=== PATIENT | female | born 1985 | race Caucasian/White ===

== ENCOUNTER 2018-08-22 23:05 | Inpatient (IN) | payer OTHER ==
[2018-08-22] MEDS ORDERED: BETAMET ACET/BETAMET NA PH 30 MG/5 ML VIAL IM ONE (23:39)
[2018-08-23] MEDS ORDERED: DEXTROSE 5%-LACTATED RINGERS 500 ML IV ONE (02:20)
--- NOTE | 2018-08-23 02:37 | HP ---
Past Medical History - Admission Chief Complaint: SROM at 8 pm 08/22 History of Present Illness: 33 y/o with SIUP at 32.5 weeks admitted overnight with c/o breaking her water. Pt has h/o at 34 weeks and has been on 17-OH P injections throughout . Has been following with MFM. History Source: Patient - Past Medical History Cardiovascular: No: HTN Pulmonary: No: COPD Gastrointestinal: No: GERD ...: 3 ...Para: 1 ...Term: 0 ...: 1 ...Spon : 0 ...Induced : 0 ...LMP: 01/14/18 ... Weeks Gestation by Dates: 32.4 ...EDC by Dates: 10/13/18 Heme/Onc: No: Anemia Infectious Disease: No: AIDS, HIV, MRSA, STD's - Past Surgical History Past Surgical History: Yes: None Hx Myomectomy: No Hx Transabdominal Cerclage: No - Smoking History Smoking history: Never smoked - Alcohol/Substance Use Hx Alcohol Use: No - Social History Usual Living Arrangement: Yes: With Spouse ADL: Independent History of Recent Travel: No Home Medications - Allergies Allergies/Adverse Reactions: Allergies Allergy/AdvReac Type Severity Reaction Status Date / Time No Known Allergies Allergy Verified 08/22/18 23:38 - Home Medications Home Medications: Ambulatory Orders Progesterone [Progesterone in Oil] 50 mg IM WEEKLY 08/22/18 RX: Vitamins (Sjr) - 1 tab PO DAILY 08/22/18 Review of Systems - Review of Systems Constitutional: reports: No Symptoms Eyes: reports: No Symptoms HENT: reports: No Symptoms Neck: reports: No Symptoms Cardiovascular: reports: No Symptoms Respiratory: reports: No Symptoms Gastrointestinal: reports: No Symptoms Genitourinary: reports: Other (leaking amniotic fluid) Breasts: reports: No Symptoms Reported Musculoskeletal: reports: No Symptoms Integumentary: reports: No Symptoms Neurological: reports: No Symptoms Endocrine: reports: No Symptoms Hematology/Lymphatic: reports: No Symptoms Psychiatric: reports: No Symptoms Physical Exam - Maternity Vital Signs: Vital Signs Temperature 98.8 F 08/22/18 23:40 Pulse Rate 112 H 08/22/18 23:40 Respiratory Rate 18 08/22/18 23:40 Blood Pressure 126/80 08/22/18 23:40 O2 Sat by Pulse Oximetry (%) Constitutional: Yes: Well Nourished, No Distress, Calm Eyes: Yes: Conjunctiva Clear, EOM Intact HENT: Yes: Atraumatic, Normocephalic Neck: Yes: Supple, Trachea Midline Cardiovascular: Yes: Regular Rate and Rhythm Lungs: Clear to auscultation Breast(s): Yes: WNL - Abdominal Exam/OB Fundal Height: 33 Number of Fetuses: Single Presentation: Vertex Contractions: No Category: I Accelerations: Uniform Decelerations: None - Vaginal Exam/OB Vaginal Bleediing: No Presentation: Vertex/Position - Physical Exam Psychiatric: Yes: Alert, Oriented Hemorrhage Risk Assessment - Risk Factors Medium Risk Factors: Yes: None High Risk Factors: Yes: None Risk Score: 1 Risk Level: Medium Risk Problem List - Problems (1) premature rupture of membranes Code(s): O42.919 - PRETRM GT ROM, UNSP TIME BETW RUPT AND ONST LABR, UNSP TRI Assessment/Plan 33 y/o with SIUP at 32.5 weeks, PPROM Latency antibiotics s/p 1 dose betamethasone, repeat 24 hours daily CBC for now ok for regular diet close observation neonatology aware of patient
[2018-08-23] MEDS ORDERED: AMPICILLIN - 2 GM in SODIUM CHLORIDE 100 ML IVPB SCH (02:45)
[2018-08-23] MEDS ORDERED: ERYTHROMYCIN INJECTION - 250 MG in SODIUM CHLORIDE 100 ML IVPB SCH ×2 (03:00→09:00)
[2018-08-23 03:10] LABS: BASO % 0.3 % (0-2.0); EOS % 2.5 % (0-4.5); HEMATOCRIT 37.5 % (32.4-45.2); HEMOGLOBIN 13.2 GM/dL (10.7-15.3); LYMPH % 20.8 % (8-40); MCH 29.7 pg (25.7-33.7); MCHC 35.3 g/dl (32.0-36.0); MEAN CELL VOLUME 84.2 fl (80-96); MEAN PLT VOLUME 9.8 fl (7.5-11.1); NEUT % 66.4 % (42.8-82.8); PLATELET COUNT 215 K/MM3 (134-434); RBC 4.45 M/mm3 (3.60-5.2); RDW 14.4 % (11.6-15.6); WHITE BLOOD COUNT 10.7 K/mm3 (4.0-10.0)
[2018-08-23 03:11] LABS: PROTHROMBIN TIME (PATIENT) 11.8 SEC (9.7-13.0)
[2018-08-23 03:20] LABS: ANION GAP 8 MMOL/L (8-16); BLOOD UREA NITROGEN 12 mg/dL (7-18); CALCIUM 8.7 mg/dL (8.5-10.1); CHLORIDE 105 mmol/L (98-107); CO2 24 mmol/L (21-32); CREATININE 0.4 mg/dL (0.55-1.3); GLUCOSE,RANDOM 110 mg/dL (74-106); POTASSIUM 3.8 mmol/L (3.5-5.1); SODIUM 137 mmol/L (136-145)
[2018-08-23 03:31] VITALS: BMI 32.1
[2018-08-23] MEDS ORDERED: AMPICILLIN SODIUM 2 GM VIAL ONE ×4 (03:40→20:20)
[2018-08-23] MEDS: AMPICILLIN - 2 GM in SODIUM CHLORIDE 100 ML IVPB SCH ×4 (03:40→20:30)
[2018-08-23] MEDS: DEXTROSE 5%-LACTATED RINGERS 1,000 ML IV SCH (03:45)
[2018-08-23] MEDS ORDERED: AZITHROMYCIN 500 MG TABLET PO ONE (05:09)
--- NOTE | 2018-08-23 08:20 | PN ---
Ante-Partal Exam - Subjective Vital Signs: Vital Signs Temperature 98.3 F 08/23/18 08:00 Pulse Rate 88 08/23/18 08:00 Respiratory Rate 20 08/23/18 08:00 Blood Pressure 129/68 08/23/18 08:00 O2 Sat by Pulse Oximetry (%) Bleeding: No Headache: No Visual changes: No Right upper quadrant pain: No - Contractions Contractions: No - Exam during Labor Heart Rate: 125 Variability: Moderate Category: I Monitor Accelerations: Absent Monitor Decelerations: None Nitrazine Test: Positive Presentation: Vertex Remarks: sterile speculum exam revealed visually closed cervix, leaking clear amniotic fluid - Assessment/Plan Assessment/Plan: pt stable continue CBC daily, temps Q4 if any signs of labor/infection will plan for delivery, otherwise plan for IOL at 34 weeks regular diet ok today as pt stable close monitoring
[2018-08-23] MEDS ORDERED: TUBERCULIN PPD 5 TU/0.1ML SYRINGE (IN PATIENT USE ONLY) ID ONE (09:00)
[2018-08-23] MEDS: PRENATAL VITAMINS W/ FOLIC ACID TABLET (FP) PO SCH (10:00)
[2018-08-24] MEDS: DEXTROSE 5%-LACTATED RINGERS 1,000 ML IV SCH (01:40)
[2018-08-24] MEDS ORDERED: AMPICILLIN SODIUM 2 GM VIAL ONE ×3 (02:21→21:16)
[2018-08-24] MEDS ORDERED: BETAMET ACET/BETAMET NA PH 30 MG/5 ML VIAL IM ONE (02:30)
[2018-08-24] MEDS: AMPICILLIN - 2 GM in SODIUM CHLORIDE 100 ML IVPB SCH ×4 (02:30→21:29)
[2018-08-24 06:46] LABS: BASO % 0.2 % (0-2.0); EOS % 0.2 % (0-4.5); HEMATOCRIT 33.8 % (32.4-45.2); HEMOGLOBIN 11.8 GM/dL (10.7-15.3); LYMPH % 9.8 % (8-40); MCH 29.2 pg (25.7-33.7); MCHC 34.9 g/dl (32.0-36.0); MEAN CELL VOLUME 83.9 fl (80-96); MEAN PLT VOLUME 9.4 fl (7.5-11.1); MONO % 5.7 % (3.8-10.2); NEUT % 84.1 % (42.8-82.8); PLATELET COUNT 206 K/MM3 (134-434); RBC 4.03 M/mm3 (3.60-5.2); RDW 14.3 % (11.6-15.6); WHITE BLOOD COUNT 12.5 K/mm3 (4.0-10.0)
[2018-08-24] MEDS: PRENATAL VITAMINS W/ FOLIC ACID TABLET (FP) PO SCH (10:00)
[2018-08-24] MEDS: AZITHROMYCIN 250 MG TABLET PO SCH (10:00)
--- NOTE | 2018-08-24 11:47 | PN ---
Ante-Partal Exam - Subjective Subjective: Pt doing well no contractions abd pain bleeding or fever Vital Signs: Vital Signs Temperature 97.8 F 08/24/18 10:55 Pulse Rate 93 H 08/24/18 10:55 Respiratory Rate 20 08/24/18 10:55 Blood Pressure 124/71 08/24/18 10:55 O2 Sat by Pulse Oximetry (%) Bleeding: No Headache: No Visual changes: No Right upper quadrant pain: No - Contractions Contractions: No Monitor Mode: External - Exam during Labor Variability: Moderate Category: I Monitor Decelerations: None Amniotic Membrane Status: Ruptured Presentation: Vertex - Intrapartum Hemorrhage Risk Risk Score: 1 Risk Level: Medium Risk - Assessment/Plan Assessment/Plan: IUP at 32 week PPROM no contractions dong well Cat 1 BPP 02/04 DAVID 8 WBC 12 EFW 1900 Plan CBC daily IV abs SP 2 doses of steroids Will induce of fever or problems
[2018-08-24] MEDS ORDERED: SODIUM CHLORIDE 100 ML IVPB ONE ×2 (14:32→21:16)
[2018-08-25] MEDS: DEXTROSE 5%-LACTATED RINGERS 1,000 ML IV SCH ×3 (00:30→21:44)
[2018-08-25] MEDS ORDERED: AMPICILLIN SODIUM 2 GM VIAL ONE (03:32)
[2018-08-25] MEDS ORDERED: SODIUM CHLORIDE 100 ML IVPB ONE (03:32)
[2018-08-25] MEDS: AMPICILLIN - 2 GM in SODIUM CHLORIDE 100 ML IVPB SCH (03:36)
[2018-08-25] MEDS: PRENATAL VITAMINS W/ FOLIC ACID TABLET (FP) PO SCH (09:48)
[2018-08-25] MEDS: AMOXICILLIN 250 MG CAPSULE PO SCH ×2 (09:48→18:23)
[2018-08-25] MEDS: AZITHROMYCIN 250 MG TABLET PO SCH (09:49)
--- NOTE | 2018-08-25 10:21 | PN ---
Progress Note (short form) - Note Progress Note: Patient seen and evaluate, doing well. She's afebrile. She continues to experience leakage of fluid. PE : Chest : CTA, no rales Heart : S1S2, RRR, no murmur ABD : Gravid, c/w 32 weeks Perineum : + leakage of fluid A / P : PPROM S/P steroid Continue IV antibiotic Continue daily CBC
[2018-08-25 11:15] LABS: BASO % 0.3 % (0-2.0); EOS % 0.7 % (0-4.5); HEMATOCRIT 33.5 % (32.4-45.2); HEMOGLOBIN 11.6 GM/dL (10.7-15.3); LYMPH % 14.4 % (8-40); MCH 29.2 pg (25.7-33.7); MCHC 34.7 g/dl (32.0-36.0); MEAN CELL VOLUME 84.1 fl (80-96); MEAN PLT VOLUME 9.5 fl (7.5-11.1); MONO % 10.2 % (3.8-10.2); NEUT % 74.4 % (42.8-82.8); PLATELET COUNT 209 K/MM3 (134-434); RBC 3.98 M/mm3 (3.60-5.2); RDW 14.4 % (11.6-15.6); WHITE BLOOD COUNT 12.5 K/mm3 (4.0-10.0)
[2018-08-25 12:03] LABS: ANISOCYTOSIS 0; HELMET CELLS 0; HOWELL-JOLLY BODIES 0; MACROCYTOSIS 0; OVALOCYTE 0; PLATELET ESTIMATE NORMAL; ROULEAU 0; SICKELED CELLS 0; TARGET CELLS 0; TEAR DROP CELLS 0; TOXIC GRANULATION 0
--- NOTE | 2018-08-25 23:32 | PN ---
Ante-Partal Exam - Subjective Subjective: Pt with c/o contractions Vital Signs: Vital Signs Temperature 98.0 F 08/25/18 21:20 Pulse Rate 101 H 08/25/18 21:20 Respiratory Rate 18 08/25/18 21:20 Blood Pressure 135/83 08/25/18 21:20 O2 Sat by Pulse Oximetry (%) - Contractions Regularity: Irregular Intensity: Mild Monitor Mode: External - Exam during Labor Variability: Moderate Category: I Monitor Decelerations: None Amniotic Membrane Status: Leaking Amniotic Fluid: Clear Presentation: Vertex - Intrapartum Hemorrhage Risk Risk Score: 1 Risk Level: Medium Risk - Assessment/Plan Assessment/Plan: PPROM at 34 weeks occ contractions no bleeding min pain no signs of infection Cat 1 Plan will do Biophysical profile tomorrow
[2018-08-26] MEDS: AMOXICILLIN 250 MG CAPSULE PO SCH ×3 (01:20→18:42)
[2018-08-26] MEDS: DEXTROSE 5%-LACTATED RINGERS 1,000 ML IV SCH ×3 (06:17→22:00)
[2018-08-26] MEDS: AZITHROMYCIN 250 MG TABLET PO SCH (10:15)
[2018-08-26] MEDS: PRENATAL VITAMINS W/ FOLIC ACID TABLET (FP) PO SCH (10:19)
--- NOTE | 2018-08-26 17:42 | PN ---
Ante-Partal Exam - Subjective Subjective: Pt doing well pt leaking fluid Vital Signs: Vital Signs Temperature 98.8 F 08/26/18 14:00 Pulse Rate 98 H 08/26/18 14:00 Respiratory Rate 20 08/26/18 14:00 Blood Pressure 120/67 08/26/18 14:00 O2 Sat by Pulse Oximetry (%) Bleeding: No Headache: No Visual changes: No Right upper quadrant pain: No - Contractions Contractions: Yes Regularity: Irregular - Exam during Labor Category: I Monitor Decelerations: None Presentation: Vertex - Intrapartum Hemorrhage Risk Risk Score: 0 Risk Level: Low Risk - Assessment/Plan Assessment/Plan: IUp at 33 weeks PPROM Plan BPP
[2018-08-27] MEDS: AMOXICILLIN 250 MG CAPSULE PO SCH ×3 (01:41→17:25)
[2018-08-27] MEDS: DEXTROSE 5%-LACTATED RINGERS 1,000 ML IV SCH ×2 (07:45→16:00)
[2018-08-27] MEDS: AZITHROMYCIN 250 MG TABLET PO SCH (09:05)
[2018-08-27] MEDS: PRENATAL VITAMINS W/ FOLIC ACID TABLET (FP) PO SCH (09:05)
--- NOTE | 2018-08-27 10:03 | PN ---
Progress Note (SOAP) - Subjective Chief Complaint: Pt doing well - Current Medications Current Medications: Active Medications Amoxicillin (Amoxicillin -) 250 mg PO Q8H [facility] Stop: 08/30/18 02:01 Last Admin: 08/27/18 09:06 Dose: 250 mg Azithromycin (Zithromax -) 250 mg PO DAILY [facility] Stop: 08/29/18 10:01 Last Admin: 08/27/18 09:05 Dose: 250 mg Dextrose/Lactated Ringer's (D5-Lr -) 1,000 mls @ 125 mls/hr IV ASDIR [facility] Last Admin: 08/27/18 07:45 Dose: 125 mls/hr Multivit/Folic Acid/Iron ( Vitamins (Sjr) -) 1 tab PO DAILY [facility] Last Admin: 08/27/18 09:05 Dose: 1 tab - Objective Vital Signs: Vital Signs Temperature 98.6 F 08/27/18 07:40 Pulse Rate 92 H 08/27/18 07:40 Respiratory Rate 18 08/27/18 07:40 Blood Pressure 122/65 08/27/18 07:40 O2 Sat by Pulse Oximetry (%) Constitutional: Yes: Well Nourished, No Distress Gastrointestinal: Yes: WNL, Soft Labs Lab Results: CBC, BMP 08/25/18 11:00 08/23/18 02:45 Problem List - Problems (1) premature rupture of membranes Code(s): O42.919 - PRETRM GT ROM, UNSP TIME BETW RUPT AND ONST LABR, UNSP TRI Assessment/Plan IUP at 33 week Plan Consult with DARIEN
[2018-08-27 14:00] LABS: BASO % 0.6 % (0-2.0); HEMOGLOBIN 12.1 GM/dL (10.7-15.3); LYMPH % 16.1 % (8-40); MCH 29.3 pg (25.7-33.7); MCHC 34.7 g/dl (32.0-36.0); MEAN CELL VOLUME 84.4 fl (80-96); MEAN PLT VOLUME 9.6 fl (7.5-11.1); MONO % 10.6 % (3.8-10.2); NEUT % 70.7 % (42.8-82.8); PLATELET COUNT 223 K/MM3 (134-434); RBC 4.14 M/mm3 (3.60-5.2); RDW 14.3 % (11.6-15.6); WHITE BLOOD COUNT 10.3 K/mm3 (4.0-10.0)
[2018-08-27 14:39] LABS: ANISOCYTOSIS 0; MACROCYTOSIS 0; PLATELET ESTIMATE NORMAL
[2018-08-28] MEDS: AMOXICILLIN 250 MG CAPSULE PO SCH ×3 (02:09→18:39)
[2018-08-28 07:07] LABS: BASO % 0.5 % (0-2.0); EOS % 2.3 % (0-4.5); HEMATOCRIT 35.8 % (32.4-45.2); HEMOGLOBIN 12.6 GM/dL (10.7-15.3); LYMPH % 19.5 % (8-40); MCHC 35.3 g/dl (32.0-36.0); MEAN CELL VOLUME 85.1 fl (80-96); MEAN PLT VOLUME 9.5 fl (7.5-11.1); MONO % 9.4 % (3.8-10.2); NEUT % 68.3 % (42.8-82.8); PLATELET COUNT 208 K/MM3 (134-434); RBC 4.21 M/mm3 (3.60-5.2); RDW 14.4 % (11.6-15.6); WHITE BLOOD COUNT 10.1 K/mm3 (4.0-10.0)
--- NOTE | 2018-08-28 09:17 | PN ---
Ante-Partal Exam - Subjective Subjective: Pt doing well. Denies contractions/VB. NO pain. leaking clear fluid. +FM NSt reactive Vital Signs: Vital Signs Temperature 98.3 F 08/28/18 08:06 Pulse Rate 90 08/28/18 08:06 Respiratory Rate 18 08/28/18 08:06 Blood Pressure 120/62 08/28/18 08:06 O2 Sat by Pulse Oximetry (%) Bleeding: No Headache: No Visual changes: No Right upper quadrant pain: No - Contractions Contractions: No - Exam during Labor Variability: Moderate Category: I Monitor Accelerations: Present Monitor Decelerations: None Amniotic Membrane Status: Ruptured Presentation: Vertex - Assessment/Plan Assessment/Plan: continue current care plan for IOL at 34 weeks unless indication/maternal indication continue daily CBCs
[2018-08-28] MEDS: AZITHROMYCIN 250 MG TABLET PO SCH (09:36)
[2018-08-28] MEDS: PRENATAL VITAMINS W/ FOLIC ACID TABLET (FP) PO SCH (09:36)
[2018-08-28 12:04] LABS: ANISOCYTOSIS 0; MACROCYTOSIS 0; PLATELET ESTIMATE NORMAL
[2018-08-29] MEDS: DEXTROSE 5%-LACTATED RINGERS 1,000 ML IV SCH ×2 (01:15→17:00)
[2018-08-29] MEDS: AMOXICILLIN 250 MG CAPSULE PO SCH ×3 (01:55→18:31)
--- NOTE | 2018-08-29 07:05 | PN ---
Ante-Partal Exam - Subjective Subjective: Pt doing well Vital Signs: Vital Signs Temperature 98.2 F 08/29/18 04:00 Pulse Rate 94 H 08/29/18 04:00 Respiratory Rate 18 08/29/18 04:00 Blood Pressure 112/52 L 08/29/18 04:00 O2 Sat by Pulse Oximetry (%) Bleeding: No Headache: No Visual changes: No Right upper quadrant pain: No - Contractions Contractions: No - Exam during Labor Variability: Moderate Category: I Monitor Decelerations: None - Intrapartum Hemorrhage Risk Risk Score: 1 Risk Level: Medium Risk - Assessment/Plan Assessment/Plan: IUP at 33.4 week PPRoM Plani nduction at 34 week cbc
[2018-08-29 09:45] LABS: BASO % 0.6 % (0-2.0); EOS % 2.6 % (0-4.5); HEMATOCRIT 36.9 % (32.4-45.2); HEMOGLOBIN 12.7 GM/dL (10.7-15.3); LYMPH % 18.6 % (8-40); MCH 29.1 pg (25.7-33.7); MCHC 34.5 g/dl (32.0-36.0); MEAN CELL VOLUME 84.1 fl (80-96); MEAN PLT VOLUME 9.4 fl (7.5-11.1); MONO % 9.4 % (3.8-10.2); NEUT % 68.8 % (42.8-82.8); PLATELET COUNT 215 K/MM3 (134-434); RBC 4.38 M/mm3 (3.60-5.2); RDW 14.7 % (11.6-15.6); WHITE BLOOD COUNT 10.6 K/mm3 (4.0-10.0)
[2018-08-29] MEDS: AZITHROMYCIN 250 MG TABLET PO SCH (10:35)
[2018-08-29] MEDS: PRENATAL VITAMINS W/ FOLIC ACID TABLET (FP) PO SCH (10:35)
[2018-08-30] MEDS: DEXTROSE 5%-LACTATED RINGERS 1,000 ML IV SCH (00:26)
[2018-08-30] MEDS: AMOXICILLIN 250 MG CAPSULE PO SCH (02:12)
--- NOTE | 2018-08-30 07:55 | PN ---
Ante-Partal Exam - Subjective Subjective: Pt doing well Vital Signs: Vital Signs Temperature 98.0 F 08/30/18 06:00 Pulse Rate 99 H 08/30/18 06:00 Respiratory Rate 20 08/30/18 06:00 Blood Pressure 111/56 L 08/30/18 06:00 O2 Sat by Pulse Oximetry (%) Bleeding: No Headache: No Visual changes: No Right upper quadrant pain: No - Contractions Contractions: No Monitor Mode: External - Exam during Labor Heart Rate: 140 Variability: Moderate Heart Rate Location: [facility] Category: I Exam: Vaginal Amniotic Membrane Status: Ruptured Presentation: Vertex - Intrapartum Hemorrhage Risk Medium Risk Factors: None High Risk Factors: None Risk Score: 0 Risk Level: Low Risk - Assessment/Plan Assessment/Plan: IUP at 33.5 week PPROM Cat 1 stable Plan bedrest Pt and agrees with plan will induce on Friday at 34 week
[2018-08-30] MEDS: PRENATAL VITAMINS W/ FOLIC ACID TABLET (FP) PO SCH (10:21)
[2018-08-31 08:16] LABS: BASO % 0.5 % (0-2.0); EOS % 2.7 % (0-4.5); HEMATOCRIT 37.9 % (32.4-45.2); LYMPH % 19.5 % (8-40); MCH 29.1 pg (25.7-33.7); MCHC 34.4 g/dl (32.0-36.0); MEAN CELL VOLUME 84.5 fl (80-96); MEAN PLT VOLUME 9.5 fl (7.5-11.1); MONO % 10.5 % (3.8-10.2); NEUT % 66.8 % (42.8-82.8); PLATELET COUNT 232 K/MM3 (134-434); RBC 4.49 M/mm3 (3.60-5.2); RDW 14.7 % (11.6-15.6); WHITE BLOOD COUNT 10.3 K/mm3 (4.0-10.0)
[2018-08-31] MEDS: PRENATAL VITAMINS W/ FOLIC ACID TABLET (FP) PO SCH (09:10)
--- NOTE | 2018-08-31 11:14 | PN ---
Ante-Partal Exam - Subjective Subjective: Pt doing well Vital Signs: Vital Signs Temperature 98.0 F 08/31/18 10:00 Pulse Rate 103 H 08/31/18 10:00 Respiratory Rate 20 08/31/18 10:00 Blood Pressure 119/72 08/31/18 10:00 O2 Sat by Pulse Oximetry (%) Bleeding: No Headache: No Visual changes: No Right upper quadrant pain: No - Contractions Contractions: No - Exam during Labor Category: I Monitor Decelerations: None Exam: Vaginal Amniotic Membrane Status: Ruptured Presentation: Vertex - Intrapartum Hemorrhage Risk Risk Score: 1 Risk Level: Medium Risk - Assessment/Plan Assessment/Plan: IUP at 33.6 week PPROM Stable Plan Induction tomorrow
[2018-08-31 11:21] LABS: ANISOCYTOSIS 1+; MACROCYTOSIS 0; PLATELET ESTIMATE NORMAL
[2018-09-01] MEDS: PRENATAL VITAMINS W/ FOLIC ACID TABLET (FP) PO SCH (10:00)
[2018-09-01 10:18] LABS: BASO % 0.7 % (0-2.0); EOS % 1.9 % (0-4.5); HEMATOCRIT 38.8 % (32.4-45.2); HEMOGLOBIN 13.5 GM/dL (10.7-15.3); LYMPH % 19.7 % (8-40); MCH 29.8 pg (25.7-33.7); MCHC 34.8 g/dl (32.0-36.0); MEAN CELL VOLUME 85.7 fl (80-96); MEAN PLT VOLUME 9.8 fl (7.5-11.1); MONO % 10.4 % (3.8-10.2); NEUT % 67.3 % (42.8-82.8); PLATELET COUNT 237 K/MM3 (134-434); RBC 4.53 M/mm3 (3.60-5.2); RDW 14.8 % (11.6-15.6); WHITE BLOOD COUNT 10.2 K/mm3 (4.0-10.0)
[2018-09-01] MEDS ORDERED: DINOPROSTONE 10 MG VAGINAL SUPPOSITORY VG ONE (11:44)
[2018-09-01] MEDS: DEXTROSE 5%-LACTATED RINGERS 1,000 ML IV SCH ×2 (12:00→20:40)
[2018-09-01] MEDS ORDERED: AMPICILLIN SODIUM 2 GM VIAL ONE (14:00)
[2018-09-01] MEDS ORDERED: AMPICILLIN - 2 GM in SODIUM CHLORIDE 100 ML IVPB ONE (14:00)
[2018-09-01] MEDS ORDERED: AMPICILLIN SODIUM 1 GM VIAL ONE ×2 (16:48→21:01)
[2018-09-01] MEDS: AMPICILLIN - 1 GM in SODIUM CHLORIDE 100 ML IVPB SCH ×2 (18:00→22:01)
[2018-09-01] MEDS ORDERED: CITRIC ACID/SODIUM CITRATE 30 ML UNIT-DOSE CUP PO ONE (23:30)
--- NOTE | 2018-09-02 00:50 | PN ---
Ante-Partal Exam - Subjective Subjective: Pt doing well Vital Signs: Vital Signs Temperature 98.7 F 09/02/18 00:00 Pulse Rate 97 H 09/02/18 00:00 Respiratory Rate 20 09/02/18 00:00 Blood Pressure 123/80 09/02/18 00:00 O2 Sat by Pulse Oximetry (%) Bleeding: No Headache: No Visual changes: No - Contractions Contractions: No Monitor Mode: External - Exam during Labor Heart Rate: 140 Variability: Moderate Heart Rate Location: [facility] Category: I Monitor Accelerations: Present Monitor Decelerations: None Exam: Vaginal Dilatation (cm): 1-2 Effacement (%): 80 Amniotic Membrane Status: Ruptured Amniotic Fluid: Clear Presentation: Vertex Station: -2 - Intrapartum Hemorrhage Risk Risk Score: 0 Risk Level: Low Risk - Assessment/Plan Assessment/Plan: iup@34 week PPROM Plan pit aug
[2018-09-02] MEDS ORDERED: BUTORPHANOL TARTRATE 1 MG/ML VIAL IVPB ONE (00:52)
[2018-09-02] MEDS ORDERED: PROMETHAZINE HCL 25 MG/1 ML VIAL IVPUSH ONE (00:52)
[2018-09-02] MEDS ORDERED: OXYTOCIN 30 UNITS in 0.9% NS 30 UNIT/500 ML INFUS.BAG IVPB ONE (00:58)
[2018-09-02] MEDS ORDERED: OXYTOCIN 30 UNITS in 0.9% NS 30 UNIT/500 ML INFUS.BAG IVPB SCH (01:00)
--- NOTE | 2018-09-02 01:01 | LDN ---
Oxytocin Pre-Use Checklist Date and Time completed: 09/02/18 0100 Physician order on chart: Yes Current history and physical on chart: Yes Indication for induction is documented: Yes record on chart: Yes Pelvis is documented by physician to be clinically adequate: Yes Estimated weight within past week (clinical or sono): Less than 4500 grams in a non-diabetic woman Gestational age is documented: Yes Consent signed: Yes Physician with privileges: is aware of the induction, is readily available, is documented in the medical record Status of the cervix is assessed and documented: Yes Presentation is assessed and documented: Yes Assessment completed and includes: A minimum of 30 minutes of monitoring is required prior to start, At least 2 accelerations (15bpm x 15sec) in 30 minutes are present, Adequate variability, No late decelerations in past 30 minutes
--- NOTE | 2018-09-02 01:03 | PN ---
Ante-Partal Exam - Subjective Subjective: Pt doing well Pt & agree with induction Vital Signs: Vital Signs Temperature 98.7 F 09/02/18 00:00 Pulse Rate 97 H 09/02/18 00:00 Respiratory Rate 20 09/02/18 00:00 Blood Pressure 123/80 09/02/18 00:00 O2 Sat by Pulse Oximetry (%) - Exam during Labor Heart Rate Location: [facility] Category: I Monitor Accelerations: Present Monitor Decelerations: None Exam: Vaginal Dilatation (cm): 1-2 Effacement (%): 80 Amniotic Membrane Status: Ruptured - Intrapartum Hemorrhage Risk Medium Risk Factors: None Risk Score: 0 Risk Level: Low Risk - Assessment/Plan Assessment/Plan: IUP @ 34 week PPROM Cat 1 induction advised by DARIEN Plan cervidil
[2018-09-02] MEDS ORDERED: AMPICILLIN SODIUM 1 GM VIAL ONE ×3 (01:20→09:59)
[2018-09-02] MEDS: AMPICILLIN - 1 GM in SODIUM CHLORIDE 100 ML IVPB SCH ×3 (01:57→10:00)
[2018-09-02] MEDS ORDERED: PROMETHAZINE HCL 25 MG/1 ML VIAL ONE (03:57)
[2018-09-02] MEDS ORDERED: BUTORPHANOL TARTRATE 1 MG/ML VIAL ONE ×2 (03:57)
[2018-09-02] MEDS ORDERED: FENTANYL/BUPIVACAINE/NS/PF - PCEA - 50 ML DISP.SYRIN EP ONE ×2 (06:08→10:35)
[2018-09-02] MEDS ORDERED: NALOXONE HCL 0.4 MG/ML VIAL IVPUSH PRN (06:18)
--- NOTE | 2018-09-02 06:18 | PN ---
Ante-Partal Exam - Subjective Subjective: Pt on 7 mu pitocon desires epidural Vital Signs: Vital Signs Temperature 98.1 F 09/02/18 05:00 Pulse Rate 94 H 09/02/18 05:00 Respiratory Rate 20 09/02/18 05:00 Blood Pressure 120/82 09/02/18 05:00 O2 Sat by Pulse Oximetry (%) Bleeding: No Headache: No Visual changes: No Right upper quadrant pain: No - Contractions Contractions: Yes Monitor Mode: External - Exam during Labor Variability: Moderate Heart Rate Location: [facility] Category: I Monitor Accelerations: Present Monitor Decelerations: None Exam: Vaginal Dilatation (cm): 1-2 Effacement (%): 80 Amniotic Membrane Status: Ruptured Presentation: Vertex Station: 0 - Intrapartum Hemorrhage Risk Risk Score: 0 Risk Level: Low Risk - Assessment/Plan Assessment/Plan: PPROm at 34.1 day will get epidural Cat 1 Plan Neonatology aware continue abs continue pitocin
[2018-09-02] MEDS ORDERED: BUPIVACAINE HCL/PF 0.25% (2.5MG/ML) 10 ML VIAL ONE (06:26)
[2018-09-02] MEDS ORDERED: LIDO 2%/EPI 1:200000 PRESRVFRE (20 ML SDVIAL) ONE (06:26)
[2018-09-02] MEDS ORDERED: FENTANYL/BUPIVACAINE/NS/PF - PCEA - 50 ML DISP.SYRIN EP SCH (06:30)
[2018-09-02] MEDS ORDERED: ELECTROLYTE-148 SOLN 1,000 ML IV SCH (07:15)
[2018-09-02] MEDS: PRENATAL VITAMINS W/ FOLIC ACID TABLET (FP) PO SCH (10:53)
[2018-09-02] MEDS ORDERED: OXYTOCIN 20 UNITS in 0.9% NS 20 UNIT/1,000 ML INFUS.BAG IV ONE (11:02)
[2018-09-02] MEDS ORDERED: BENZOCAINE 28 GM HEMORRHOIDAL OINTMENT TP PRN (11:45)
[2018-09-02] MEDS ORDERED: BENZOCAINE 20% 57 GM BOTTLE TP PRN (11:45)
[2018-09-02] MEDS ORDERED: BISACODYL 10 MG SUPP.RECT RC PRN (11:45)
[2018-09-02] MEDS ORDERED: OXYTOCIN 20 UNITS in 0.9% NS 20 UNIT/1,000 ML INFUS.BAG IV SCH (11:45)
[2018-09-02] MEDS ORDERED: METHYLERGONOVINE MALEATE 0.2 MG/1 ML AMP IM PRN (11:45)
[2018-09-02] MEDS ORDERED: WITCH HAZEL 50% (TUCKS) 40 PAD/JAR PAD TP PRN (11:45)
--- NOTE | 2018-09-02 11:46 | PN ---
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
[2018-09-02] MEDS ORDERED: SODIUM CHLORIDE 250 ML IV STA (12:36)
[2018-09-02 13:21] LABS: BASO % 0.6 % (0-2.0); EOS % 0.1 % (0-4.5); HEMATOCRIT 36.8 % (32.4-45.2); HEMOGLOBIN 12.6 GM/dL (10.7-15.3); LYMPH % 5.1 % (8-40); MCH 29.3 pg (25.7-33.7); MCHC 34.2 g/dl (32.0-36.0); MEAN CELL VOLUME 85.8 fl (80-96); MEAN PLT VOLUME 9.9 fl (7.5-11.1); MONO % 4.7 % (3.8-10.2); NEUT % 89.5 % (42.8-82.8); PLATELET COUNT 217 K/MM3 (134-434); RBC 4.29 M/mm3 (3.60-5.2); RDW 14.9 % (11.6-15.6); WHITE BLOOD COUNT 17.1 K/mm3 (4.0-10.0)
--- NOTE | 2018-09-02 14:49 | EKG ---
Test Reason : Blood Pressure : / mmHG Vent. Rate : 120 BPM Atrial Rate : 120 BPM P-R Int : 160 ms QRS Dur : 076 ms QT Int : 322 ms P-R-T Axes : 043 074 018 degrees QTc Int : 455 ms SINUS TACHYCARDIA OTHERWISE NORMAL ECG NO PREVIOUS ECGS AVAILABLE Confirmed by OBI TURNER, KANE ([id number]) on 09/02/2018 2:49:23 PM Referred By: DMITRY GENTILE Confirmed By:KANE CROCKER MD
[2018-09-02] MEDS: IBUPROFEN 600 MG TABLET (FP) PO PRN ×2 (15:28→19:29)
[2018-09-02] MEDS: ACETAMINOPHEN 325 MG TABLET (FP) PO PRN ×2 (15:29→19:29)
[2018-09-03] MEDS: IBUPROFEN 600 MG TABLET (FP) PO PRN ×2 (04:26→16:14)
[2018-09-03] MEDS: ACETAMINOPHEN 325 MG TABLET (FP) PO PRN ×2 (04:26→16:13)
--- NOTE | 2018-09-03 06:34 | PN ---
Post Progress Note - Subjective Subjective: pt sleeping upon my arrival no acute events overnight per nursing staff. tolerating diet, ambulating and voidibg. kt Post Day: 1 Type of Delivery: Vital Signs: Vital Signs Temperature 98.6 F 09/03/18 06:00 Pulse Rate 83 09/03/18 06:00 Respiratory Rate 18 09/03/18 06:00 Blood Pressure 120/66 09/03/18 06:00 O2 Sat by Pulse Oximetry (%) 100 09/02/18 13:15 Uterus: Yes: Fundus Firm Abdomen/GI: Yes: Abdomen soft, Tolerating PO Lochia: Yes: Rubra Lochia, amount: Small Activity: Ambulating - Labs Labs: CBC WBC 17.1 K/mm3 (4.0-10.0) H 09/02/18 13:05 RBC 4.29 M/mm3 (3.60-5.2) 09/02/18 13:05 Hgb 12.6 GM/dL (10.7-15.3) 09/02/18 13:05 Hct 36.8 % (32.4-45.2) 09/02/18 13:05 MCV 85.8 fl (80-96) 09/02/18 13:05 MCH 29.3 pg (25.7-33.7) 09/02/18 13:05 MCHC 34.2 g/dl (32.0-36.0) 09/02/18 13:05 RDW 14.9 % (11.6-15.6) 09/02/18 13:05 Plt Count 217 K/MM3 (134-434) 09/02/18 13:05 MPV 9.9 fl (7.5-11.1) 09/02/18 13:05 Absolute Neuts (auto) 15.3 K/mm3 (1.5-8.0) H 09/02/18 13:05 Neutrophils % 89.5 % (42.8-82.8) H D 09/02/18 13:05 Neutrophils % (Manual) 67.0 % (42.8-82.8) 08/31/18 07:25 Band Neutrophils % 1.0 % 08/31/18 07:25 Lymphocytes % 5.1 % (8-40) L D 09/02/18 13:05 Lymphocytes % (Manual) 14.0 % (8-40) D 08/31/18 07:25 Monocytes % 4.7 % (3.8-10.2) 09/02/18 13:05 Monocytes % (Manual) 4 % (3.8-10.2) 08/31/18 07:25 Eosinophils % 0.1 % (0-4.5) D 09/02/18 13:05 Eosinophils % (Manual) 4.0 % (0-4.5) D 08/31/18 07:25 Basophils % 0.6 % (0-2.0) 09/02/18 13:05 Basophils % (Manual) 1.0 % (0-2.0) D 08/31/18 07:25 Myelocytes % (Man) 1 % (0-2) 08/31/18 07:25 Promyelocytes % (Man) 0 % (0-2) 08/31/18 07:25 Blast Cells % (Manual) 0 % (0-0) 08/31/18 07:25 Nucleated RBC % 0 % (0-0) 09/02/18 13:05 Metamyelocytes 3 % (0-2) H D 08/31/18 07:25 Hypochromia 0 08/31/18 07:25 Toxic Granulation 0 08/25/18 11:00 Dohle Bodies 0 08/25/18 11:00 Platelet Estimate Normal 08/31/18 07:25 Platelet Comment Present 08/25/18 11:00 Polychromasia 1+ 08/31/18 07:25 Poikilocytosis 0 08/31/18 07:25 Basophilic Stippling 0 08/25/18 11:00 Anisocytosis 1+ 08/31/18 07:25 Microcytosis 1+ 08/31/18 07:25 Macrocytosis 0 08/31/18 07:25 Spherocytes 0 08/25/18 11:00 Sickle Cells 0 08/25/18 11:00 Target Cells 0 08/25/18 11:00 Tear Drop Cells 0 08/25/18 11:00 Ovalocytes 0 08/25/18 11:00 Stomatocytes 0 08/25/18 11:00 Helmet Cells 0 08/25/18 11:00 Escobar-Melia Bodies 0 08/25/18 11:00 [place] Rings 0 08/25/18 11:00 [place] Cells 0 08/25/18 11:00 Acanthocytes (Spur) 0 08/25/18 11:00 Rouleaux 0 08/25/18 11:00 Fragmented RBCs 0 08/25/18 11:00 Schistocytes 0 08/25/18 11:00 Problem List - Problems (1) premature rupture of membranes Code(s): O42.919 - PRETRM GT ROM, UNSP TIME BETW RUPT AND ONST LABR, UNSP TRI (2) Vaginal delivery Code(s): O80 - ENCOUNTER FOR FULL-TERM UNCOMPLICATED DELIVERY Assessment/Plan regular diet ambulation await cbc routine care
[2018-09-03 07:28] LABS: BASO % 0.6 % (0-2.0); EOS % 1.7 % (0-4.5); HEMATOCRIT 35.1 % (32.4-45.2); HEMOGLOBIN 12.1 GM/dL (10.7-15.3); LYMPH % 9.7 % (8-40); MCH 29.3 pg (25.7-33.7); MCHC 34.5 g/dl (32.0-36.0); MEAN CELL VOLUME 84.8 fl (80-96); MEAN PLT VOLUME 9.6 fl (7.5-11.1); MONO % 8.9 % (3.8-10.2); NEUT % 79.1 % (42.8-82.8); PLATELET COUNT 205 K/MM3 (134-434); RBC 4.14 M/mm3 (3.60-5.2); RDW 15.1 % (11.6-15.6); WHITE BLOOD COUNT 14.5 K/mm3 (4.0-10.0)
[2018-09-03] MEDS: PRENATAL VITAMINS W/ FOLIC ACID TABLET (FP) PO SCH (09:56)
[2018-09-03] MEDS ORDERED: SENNOSIDES/DOCUSATE COMBO (SENNA PLUS) TABLET (UD) PO PRN (22:00)
[2018-09-04] MEDS: ACETAMINOPHEN 325 MG TABLET (FP) PO PRN ×2 (00:51→10:19)
[2018-09-04] MEDS: IBUPROFEN 600 MG TABLET (FP) PO PRN ×2 (00:52→10:19)
--- NOTE | 2018-09-04 01:54 | DS ---
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 Vital Signs: Vital Signs Temperature 98.6 F 09/03/18 22:00 Pulse Rate 80 09/03/18 22:00 Respiratory Rate 18 09/03/18 22:00 Blood Pressure 124/75 09/03/18 22:00 O2 Sat by Pulse Oximetry (%) 100 09/03/18 10:00 Constitutional: Yes: Well Nourished, No Distress, Calm Eyes: Yes: Conjunctiva Clear, EOM Intact HENT: Yes: Atraumatic, Normocephalic Neck: Yes: Supple, Trachea Midline Cardiovascular: Yes: Regular Rate and Rhythm Respiratory: Yes: Regular, CTA Bilaterally Gastrointestinal: Yes: Normal Bowel Sounds, Soft ....Post : Yes: Uterus firm, Uterus non-tender Neurological: Yes: Alert, Oriented Psychiatric: Yes: Alert, Oriented Labs: CBC, BMP 09/03/18 06:30 08/23/18 02:45 Delivery - Delivery Vaginal Delivery: No Problems Type of Anesthesia: Epidural Episiotomy/Laceration: Perineal Extension/lac, 1st degree EBL (cc): 250 Delivery, Single - Stages of Labor Date 1st Stage Initiatied: 09/02/18 Time 1st Stage Initiated: 01:00 Date 2nd Stage Initiated: 09/02/18 Time 2nd Stage Initiated: 11:00 Date of Delivery: 09/02/18 Time of Delivery: 11:25 Time Placenta Delivered: 11:28 Placenta: Yes: Spontaneous - Condition of Heel Coverer/Billing Supervisor Present: Yes Name: Elisa Rosen Gender: Female Weight: 5 lb 4 oz Position: Right, OA Total Hours ROM (Hrs/Mins): 256/28 - 1 Minute Total Score: 9 5 Minutes Total Score: 9 - Feeding Plan Initial Plan: Elected not to breastfeed exclusively throughout hospitalization Discharge Summary Reason For Visit: ADMIT/PRE MATURE RUPTURE OF MEMBRANE Current Active Problems premature rupture of membranes (Acute) Vaginal delivery (Acute) Procedures: Principal: normal vaginal delivery Hospital Course: Pt admitted at on 08/23/18 at 32.5 weeks gestation with PPROM. Pt was given latency antibiotics and then at 34 weeks the patient was induced and she subsequently had a normal at 34.1 weeks gestation. She had an uncomplicated post recovery and was discharged home on post day 2. Condition: Good - Instructions Diet, Activity, Other Instructions: Physical activity Resume your normal everyday activity as tolerated no heavy lifting or strenuous exercise until seen by your doctor. No sexually activity for 6 weeks post . Wound care You may shower daily, no soaking in tubs/baths/pools for 6 weeks. Diet There are no dietary restrictions. Eat healthy, high-fiber foods. Drink 6 to 8 glasses of liquid each day. This will assist in keeping your bowels regular. Pain management You may take Tylenol or Ibuprofen (for example, Motrin, Advil etc.) as needed for pain. Call MD for any of the following: Severe pain not relieved by medication Fever of 101 or higher Excessive bleeding or drainage on dressing Inability to urinate Disposition: HOME - Home Medications Comprehensive Discharge Medication List: Ambulatory Orders Vitamins (Sjr) - 1 tab PO DAILY 08/22/18 Ibuprofen [Motrin -] 600 mg PO QID PRN #28 tablet 09/04/18
[2018-09-04] MEDS: PRENATAL VITAMINS W/ FOLIC ACID TABLET (FP) PO SCH (10:19)
[2018-09-04 10:39] VITALS: BP 129/81; PULSE 87; TEMP 98
== END 2018-09-04 12:00 | disposition home or self-care (01) | DRG 560 ==
LOC: JDEL 23:05 → JLDR 08-23 02:20 → J3W 08-24 10:55 → JLDR 08-25 18:15 → J3W 08-25 21:20 → JLDR 09-01 07:20 → J3W 09-02 15:05
PROVIDERS: ADMIT Obstetrics & Gynecology; ATTEND Obstetrics & Gynecology
PROC: 10E0XZZ Delivery of Products of Conception, External Approach (ICD-10-PCS; principal; 2018-09-02)
PROC: 0HQ9XZZ Repair Perineum Skin, External Approach (ICD-10-PCS; 2018-09-02)
DX: O42.113 Preterm premature rupture of membranes, onset of labor more than 24 hours following rupture, third trimester (principal); O60.14X0 Preterm labor third trimester with preterm delivery third trimester, not applicable or unspecified; O70.0 First degree perineal laceration during delivery; Z3A.32 32 weeks gestation of pregnancy; Z37.0 Single live birth
CPT/HCPCS: 36415; 59409; 76801-TC; 80048; 85025; 85610; 85730; 86593; 86850; 86900; 86901; 87389; 93005; 93010; 96372

== ENCOUNTER 2019-03-25 15:57 | Emergency (ER) | payer OTHER ==
[2019-03-25 16:08] VITALS: BMI 30.9
--- NOTE | 2019-03-25 16:29 | PDOC ---
Rapid Medical Evaluation Chief Complaint: Bleeding from Anus Time Seen by Provider: 03/25/19 16:26 Medical Evaluation: Allergies Allergy/AdvReac Type Severity Reaction Status Date / Time No Known Allergies Allergy Verified 03/25/19 16:08 Vital Signs Temp Pulse Resp BP Pulse Ox 98.6 F 83 18 114/68 97 03/25/19 16:03 03/25/19 16:03 03/25/19 16:03 03/25/19 16:03 03/25/19 16:03 03/25/19 16:26 33 year old female c/o rectal bleeding for the last 3 days. denies abdominal pain, vaginal bleeding, urinary symptoms. patient send by PCP for evalaution PE: patient alert ox3 A: abdominal pain labs, guaiac patient to the ER for further management of care. Discharge Disposition - Diagnosis Rectal bleeding - Discharge Dispostion Last Admission D/C Date: 09/04/18 - Referrals Referrals: Kateryna Rosario MD [Primary Care Provider] - - Patient Instructions - Post Discharge Activity
--- NOTE | 2019-03-25 17:12 | PDOC ---
History of Present Illness <Tenisha Orozco - Last Filed: 03/25/19 17:50> - General History Source: Patient Exam Limitations: No Limitations - History of Present Illness Travel History: No Initial Comments: 03/25/19 17:07 HISTORY OF PRESENT ILLNESS: This is a 33-year-old woman is 4 para 2 is currently 8 weeks with twins presents emergency department for evaluation of rectal bleed for 4 days. Patient brought a picture of her toilet which showed slight red tinged toilet water. Patient denies pain. When questioned patient states she is positive that her rectum that is bleeding and not her vagina. Patient is taking vitamins. No recent travel or sick contacts. PAST MEDICAL HISTORY: Denies past medical history SURGICAL HISTORY: Denies ALLERGIES: No known drug allergies REVIEW OF SYSTEMS General/Constitutional: Denies fever or chills. Denies weakness, weight change. HEENT: Denies change in vision. Denies ear pain or discharge. Denies sore throat. Cardiovascular: Denies chest pain or shortness of breath. Respiratory: Denies cough, wheezing, or hemoptysis. Gastrointestinal: see HPI Genitourinary: Denies dysuria, frequency, or change in urination. Musculoskeletal: Denies joint or muscle swelling or pain. Denies neck or back pain. Skin and breasts: Denies rash or easy bruising. Neurologic: Denies headache, vertigo, loss of consciousness, or loss of sensation. Psychiatric: Denies depression or anxiety. Endocrine: Denies increased thirst. Denies abnormal weight change. Hematologic/Lymphatic: Denies anemia, easy bleeding, or history of blood clots. Allergic/Immunologic: Denies hives or skin allergy. Denies latex allergy. PHYSICAL EXAM General Appearance: Well-appearing, appropriately dressed. No apparent distress , no intoxication. HEENT: EOMI, PERRLA, normal ENT inspection, normal voice, TMs normal, pharynx normal. No conjunctival pallor. No photophobia, scleral icterus. Respiratory/Chest: Lungs CTAB. No shortness of breath, chest tenderness, respiratory distress, accessory muscle use. No crackles, rales, rhonchi, stridor , wheezing, dullness Cardiovascular: RRR. S1, S2. No JVD, murmur, bradycardia, tachycardia. Vascular Pulses: Dorsalis-Pedis (R): 2+, Dorsalis-Pedis (L): 2+ Gastrointestinal/Abdominal: Normal bowel sounds. Abdomen soft, non-distended. No tenderness or rebound tenderness. No organomegaly, pulsatile mass, guarding, hernia, hepatomegaly, splenomegaly. Rectal: No lesions or hemorrhoids present to the anus and perianal region. Rectal tone is within normal limits. No palpable abnormalities noted to rectal vault. Nonbloody brown stool noted. Guiac collected. Integumentary: Appropriate color, dry, warm. No cyanosis, erythema, jaundice or rash <Dejon Matias - Last Filed: 03/26/19 16:49> - General Chief Complaint: Bleeding from Anus Stated Complaint: RECTAL BLEEDING Time Seen by Provider: 03/25/19 16:26 Past History <Tenisha Orozco - Last Filed: 03/25/19 17:50> - Past Medical History Asthma: No Cancer: No Cardiac Disorders: No COPD: No Diabetes: No HTN: No Seizures: No Thyroid Disease: No - Reproductive History (#): 2 Para: 1 - Immunization History Immunization Up to Date: Yes - Psycho Social/Smoking Cessation Hx Smoking History: Unknown if ever smoked Have you smoked in the past 12 months: No Hx Alcohol Use: No Drug/Substance Use Hx: No Substance Use Type: Marijuana Hx Substance Use Treatment: No <Dejon Matias - Last Filed: 03/26/19 16:49> - Past Medical History Allergies/Adverse Reactions: Allergies Allergy/AdvReac Type Severity Reaction Status Date / Time No Known Allergies Allergy Verified 03/25/19 16:08 Home Medications: Ambulatory Orders Vitamins (Sjr) - 1 tab PO DAILY 08/22/18 Ibuprofen [Motrin -] 600 mg PO QID PRN #28 tablet 09/04/18 *Physical Exam - Vital Signs Last Vital Signs Temp Pulse Resp BP Pulse Ox 98.6 F 83 18 114/68 97 03/25/19 16:03 03/25/19 16:03 03/25/19 16:03 03/25/19 16:03 03/25/19 16:03 <Tenisha Orozco - Last Filed: 03/25/19 17:50> - Vital Signs Last Vital Signs Temp Pulse Resp BP Pulse Ox 98.6 F 83 18 114/68 97 03/25/19 16:03 03/25/19 16:03 03/25/19 16:03 03/25/19 16:03 03/25/19 16:03 <Dejon Matias - Last Filed: 03/26/19 16:49> ED Treatment Course - LABORATORY CBC & Chemistry Diagram: 03/25/19 17:22 03/25/19 17:22 - ADDITIONAL ORDERS Additional order review: Laboratory Results 03/25/19 17:08 Stool Occult Blood Negative 03/25/19 17:22 RBC 4.63 MCV 84.3 MCHC 33.6 RDW 14.0 MPV 9.4 Neutrophils % 57.1 D Lymphocytes % 27.5 D Monocytes % 10.4 H Eosinophils % 4.1 D Basophils % 0.9 <Tenisha Orozco - Last Filed: 03/25/19 17:50> - LABORATORY CBC & Chemistry Diagram: 03/25/19 17:22 03/25/19 17:22 <Dejon Matias - Last Filed: 03/26/19 16:49> Medical Decision Making - Medical Decision Making 03/25/19 17:50 The patient was seen and evaluated in conjunction with midlevel provider under my direct supervision, ancillary studies were reviewed. I agree with the plan as outlined [facility]ION[facility] [employer] [employer]. HPI, workup/dispo as outlined. VS reviewed, wnl. anticipate discharge, pcp followup, return precautions <Tenisha Orozco - Last Filed: 03/25/19 17:50> - Medical Decision Making 03/25/19 17:12 A/P: 33-year-old 4 para 2 sent by her primary doctor for evaluation of rectal bleeding Rectal exam are within normal limits Rectal exam reveals brown stool No rectal abnormalities noted Laboratory testing included a beta hCG Transvaginal ultrasound Urine testing Reassess 03/25/19 19:43 Ultrasound as read by Dr. Whittington: Intrauterine twin gestation. Twin A sonographic gestational age is 7 weeks 1 day with heart rate of 140 bpm Twin B sonographic gestational age is 7 weeks 5 days with heart rate 144 bpm. Normal ovaries Patient is Rh+. Beta hCG 89,584. No anemia noted Guaiac-negative. I will discharge the patient home to follow-up to primary doctor as needed. I discussed the physical exam findings, ancillary test results and final diagnoses with the patient. I answered all of the patient's questions. The patient was satisfied with the care received and felt comfortable with the discharge plan and treatment plan. The patient will call their primary care physician within 24 hours to arrange follow-up and will return to the Emergency Department with any new, persistent or worsening symptoms. Portions of this note have been documented using voice recognition software. As a result, errors may occur in the escalation engineer process. Effort has been made to correct all grammatical and escalation engineer error, but some may have been missed. 03/26/19 16:49 <Dejon Matias - Last Filed: 03/26/19 16:49> Discharge <Tenisha Orozco - Last Filed: 03/25/19 17:50> - Discharge Information Problems reviewed: Yes - Admission No <Dejon Matias - Last Filed: 03/26/19 16:49> - Discharge Information Clinical Impression/Diagnosis: Rectal bleeding Condition: Fair Disposition: HOME - Follow up/Referral Referrals: Kateryna Rosario MD [Primary Care Provider] - - Patient Discharge Instructions Additional Instructions: Take your vitamins. Keep well-hydrated. Make an appointment with your [facility] for reevaluation. Return to the emergency department immediately for severe pain, vaginal bleeding that requires more than 2 pads per hour or for any other symptoms. Thank you very much for choosing us to provide your emergent health care needs. - Post Discharge Activity
[2019-03-25 17:30] LABS: BASO % 0.9 % (0-2.0); EOS % 4.1 % (0-4.5); HEMATOCRIT 39.1 % (32.4-45.2); HEMOGLOBIN 13.1 GM/dL (10.7-15.3); LYMPH % 27.5 % (8-40); MCH 28.3 pg (25.7-33.7); MCHC 33.6 g/dl (32.0-36.0); MEAN CELL VOLUME 84.3 fl (80-96); MEAN PLT VOLUME 9.4 fl (7.5-11.1); MONO % 10.4 % (3.8-10.2); NEUT % 57.1 % (42.8-82.8); PLATELET COUNT 262 K/MM3 (134-434); RBC 4.63 M/mm3 (3.60-5.2); WHITE BLOOD COUNT 8.8 K/mm3 (4.0-10.0)
[2019-03-25 17:52] LABS: INR 0.91 (0.83-1.09); PROTHROMBIN TIME (PATIENT) 10.7 SEC (9.7-13.0)
[2019-03-25 17:59] LABS: ALBUMIN 3.4 g/dl (3.4-5.0); BILIRUBIN,TOTAL 0.3 mg/dL (0.2-1); BLOOD UREA NITROGEN 9.4 mg/dL (7-18); CALCIUM 9.3 mg/dL (8.5-10.1); CREATININE 0.7 mg/dL (0.55-1.3); POTASSIUM 4.1 mmol/L (3.5-5.1); TOT PROT 6.8 g/dl (6.4-8.2)
[2019-03-25 18:15] LABS: RETICULOCYTES 1.76 % (0.5-1.5)
[2019-03-25 19:36] VITALS: BP 144/93; PULSE 80; TEMP 98.7
== END 2019-03-25 19:50 | disposition home or self-care (01) ==
LOC: JER 15:57
DX: O26.891 Other specified pregnancy related conditions, first trimester (principal); K62.5 Hemorrhage of anus and rectum; Z3A.01 Less than 8 weeks gestation of pregnancy
CPT/HCPCS: 36415; 76817-TC; 80053; 82272; 84702; 85025; 85044; 85610; 86850; 86900; 86901; 99283-25

== ENCOUNTER 2019-03-29 10:57 | Emergency (ER) | payer OTHER ==
[2019-03-29 11:12] VITALS: TEMP 98.5; BMI 30.9
--- NOTE | 2019-03-29 11:46 | PDOC ---
Attending Attestation - Resident Resident Name: Brian Jackson - HPI HPI: 03/29/19 15:23 Pt presents to the ED complaining of vaginal bleeding after intercourse today. History of twin gestation, with US in this ED on 03/25 that showed IUP. Denies abdominal pain, nausea or vomiting. - Physicial Exam PE: 03/29/19 15:32 Agree with resident exam. patient is alert and oriented and in no acute distress. Abdomen soft, non tender, non distended without guarding or rebound. - Medical Decision Making 03/29/19 15:34 Pt presents to the ED complaining of vaginal bleeding. US shows twin IUP with FHR and small subchrionic hemorrhage. Will discharge home with instructions to follow up with her primary OB.
[2019-03-29] MEDS ORDERED: ONDANSETRON 4 MG/2 ML VIAL IVPUSH ONE (11:58)
--- NOTE | 2019-03-29 12:00 | PDOC ---
History of Present Illness - General Chief Complaint: Vaginal Bleeding Stated Complaint: Vaginal Bleeding Time Seen by Provider: 03/29/19 11:37 History Source: Patient Exam Limitations: No Limitations - History of Present Illness Initial Comments: 03/29/19 13:24 Gaby Matthews is a 33yF 7 weeks presenting w vaginal bleeding. Yesterday 2am pt was engaged in sexual intercourse when she felt big gush of blood from vagina. Soaked 4 pads yesterday, vaginal bleeding has slowed down today. Gross blood and blood clots seen in toilet. Associated intermittent suprapubic cramping and nausea, no vomiting. Denies fever, cough, headache, SOB , chest pain, urinary changes, diarrhea/constipation. Had 2 episodes of vaginal bleeding during last , no complications. Follows w Dr Liane LANGLEY, ultrasound showed twin during last visit. Past History - Past Medical History Allergies/Adverse Reactions: Allergies Allergy/AdvReac Type Severity Reaction Status Date / Time No Known Allergies Allergy Verified 03/29/19 11:06 Home Medications: Ambulatory Orders Vitamins (Sjr) - 1 tab PO DAILY 08/22/18 Asthma: No Cancer: No Cardiac Disorders: No COPD: No Diabetes: No HTN: No Seizures: No Thyroid Disease: No - Reproductive History (#): 2 Para: 1 Therapeutic (s) & number: No - Immunization History Immunization Up to Date: Yes - Psycho Social/Smoking Cessation Hx Smoking History: Never smoked Have you smoked in the past 12 months: No Information on smoking cessation initiated: No Hx Alcohol Use: No Drug/Substance Use Hx: No Substance Use Type: Marijuana Hx Substance Use Treatment: No Review of Systems - Review of Systems Constitutional: No: Chills, Fever HEENTM: No: Nose Pain, Throat Pain, Mouth Pain Respiratory: No: Cough, Shortness of Breath ABD/GI: Yes: Nausea. No: Abdominal Distended, Constipated, Diarrhea, Vomiting : Yes: Other (vaginal bleeding). No: Burning, Dysuria, Discharge, Frequency, Flank Pain Musculoskeletal: No: Back Pain, Joint Pain, Joint Swelling, Muscle Pain Integumentary: No: Bruising, Dryness, Erythema Neurological: No: Headache, Numbness, Seizure, Tingling, Tremors Psychiatric: No: Anxiety, Depression, Stressors Endocrine: No: Excessive Sweating, Flushing, Intolerance to Cold, Intolerance to Heat Hematologic/Lymphatic: Yes: Blood Clots. No: Anemia *Physical Exam - Vital Signs Last Vital Signs Temp Pulse Resp BP Pulse Ox 98.5 F 85 15 117/76 100 03/29/19 11:07 03/29/19 11:07 03/29/19 11:07 03/29/19 11:07 03/29/19 11:07 - Physical Exam General Appearance: Yes: Nourished, Appropriately Dressed. No: Apparent Distress HEENT: positive: EOMI, ADAM, Normal Voice, Hearing Grossly Normal. negative: Scleral Icterus (R), Scleral Icterus (L), Nasal Congestion, Rhinorrhea Respiratory/Chest: positive: Lungs Clear, Normal Breath Sounds. negative: Chest Tender, Respiratory Distress Cardiovascular: positive: Regular Rhythm, Regular Rate, S1, S2. negative: Edema , Murmur Female Pelvic Exam: positive: normal external exam, cervical os closed, vaginal bleeding (gross blood in vaginal canal). negative: discharge, adnexal tenderness Gastrointestinal/Abdominal: positive: Normal Bowel Sounds, Tender (mild tender suprapubic ), Flat, Soft. negative: Organomegaly, Distended, Guarding, Hernia, Mass Musculoskeletal: positive: Normal Inspection Extremity: positive: Normal Capillary Refill Integumentary: positive: Normal Color Neurologic: positive: Fully Oriented, Alert, Normal Mood/Affect, Normal Response , Responsive. negative: Numbness, Confused, Disoriented ED Treatment Course - LABORATORY CBC & Chemistry Diagram: 03/29/19 12:40 03/29/19 12:12 Medical Decision Making - Medical Decision Making 03/29/19 11:56 CBC CMP HCG UA Ucx T&S zofran for nausea Hgb normal 14, normal CBC CMP, blood on UA no UTI pelvic exam shows gross blood in vaginal vault, cervix closed, no cervical/ ovarian tenderness TVUS shows twin live intrauterine pregnancies approx 8wk 1-3d gestational age w small subchorionic bleed. Gaby Matthews is a 33yF 7 weeks presenting w vaginal bleeding. TVUS shows twin live intrauterine pregnancies w small subchorionic bleed. Hemodynamically stable, normal Hgb level. Given zofran for nausea. D/c home w obgyn f/u OBGYN Dr Rob Discharge - Discharge Information Problems reviewed: Yes Clinical Impression/Diagnosis: Vaginal bleeding before 22 weeks gestation Condition: Stable Disposition: HOME - Admission No - Follow up/Referral Referrals: Kateryna Rosario MD [Primary Care Provider] - Mi Villareal DO [Staff Physician] - - Patient Discharge Instructions Patient Printed Discharge Instructions: DI for Vaginal Bleeding During Additional Instructions: You were seen for vaginal bleeding. Your workup shows that you have a viable . Please make an appointment to see Dr Villareal within the next 1-2 days regarding your bleeding. Come back to the ED if you have worsening abdominal cramping, heavy bleeding, or have a fever. - Post Discharge Activity
[2019-03-29 13:04] LABS: BASO % 0.6 % (0-2.0); EOS % 3.9 % (0-4.5); HEMATOCRIT 41.6 % (32.4-45.2); LYMPH % 24.9 % (8-40); MCHC 33.7 g/dl (32.0-36.0); MEAN CELL VOLUME 83.1 fl (80-96); MEAN PLT VOLUME 9.7 fl (7.5-11.1); MONO % 9.4 % (3.8-10.2); NEUT % 61.2 % (42.8-82.8); PLATELET COUNT 270 K/MM3 (134-434); RDW 13.5 % (11.6-15.6)
[2019-03-29 13:49] LABS: ALBUMIN 3.6 g/dl (3.4-5.0); BILIRUBIN,TOTAL 0.3 mg/dL (0.2-1); BLOOD UREA NITROGEN 8.2 mg/dL (7-18); CALCIUM 9.3 mg/dL (8.5-10.1); CREATININE 0.6 mg/dL (0.55-1.3); POTASSIUM 3.9 mmol/L (3.5-5.1); TOT PROT 7.5 g/dl (6.4-8.2)
[2019-03-29] MEDS ORDERED: ONDANSETRON 4 MG/2 ML VIAL ONE (14:15)
[2019-03-29 15:02] LABS: EPI CELLS 5.5 /HPF (0-5/HPF); HYALINE CASTS 11 /lpf (0-8); URINE APPEARANCE CLOUDY; URINE BACTERIA 16.4 /hpf (NEGATIVE); URINE BILIRUBIN NEGATIVE (NEGATIVE); URINE COLOR YELLOW; URINE GLUCOSE (UA) NEGATIVE (NEGATIVE); URINE KETONE NEGATIVE (NEGATIVE); URINE LEUK ESTERASE NEGATIVE (NEGATIVE); URINE NITRITE NEGATIVE (NEGATIVE); URINE PROTEIN NEGATIVE (NEGATIVE); URINE RBC 1 /hpf (0-4); URINE UROBILINOGEN 0.2 mg/dL (0.2-1.0); URINE WBC 1 /hpf (0-5)
[2019-03-29 15:48] VITALS: BP 110/70; PULSE 80
== END 2019-03-29 15:46 | disposition home or self-care (01) ==
LOC: JER 10:57
PROC: 3E033GC Introduction of Other Therapeutic Substance into Peripheral Vein, Percutaneous Approach (ICD-10-PCS; principal; 2019-03-29)
DX: O26.891 Other specified pregnancy related conditions, first trimester (principal); O20.8 Other hemorrhage in early pregnancy; O30.001 Twin pregnancy, unspecified number of placenta and unspecified number of amniotic sacs, first trimester; Z3A.08 8 weeks gestation of pregnancy
CPT/HCPCS: 36415; 76810-TC; 80053; 81003; 84702; 85025; 86850; 86900; 86901; 87086; 96374; 99282-25

== ENCOUNTER 2019-05-06 08:23 | Emergency (ER) | payer OTHER ==
--- NOTE | 2019-05-06 08:31 | PDOC ---
History of Present Illness - General Stated Complaint: Vaginal Bleeding Time Seen by Provider: 05/06/19 08:25 - History of Present Illness Initial Comments: 05/06/19 08:28 33 yo F, , p/w abdominal pain and vaginal bleeding. Patient known to be with twins, approximately 13 weeks. One fetus evident outside the vagina, reportedly saw one pass at home. Patient with ongoing abdominal contractions and slow vaginal bleeding. Denies CP, N/V, fevers/chills. Endorses mild SOB. Patient seen by Dr. Villareal outpatient. Past History - Past Medical History Allergies/Adverse Reactions: Allergies Allergy/AdvReac Type Severity Reaction Status Date / Time No Known Allergies Allergy Verified 03/29/19 11:06 Home Medications: Ambulatory Orders Vitamins (Sjr) - 1 tab PO DAILY 08/22/18 Doxycycline Hyclate 200 mg PO ONCE #3 tablet. 05/06/19 Methylergonovine Maleate [Methergine] 0.2 mg PO TID #9 tablet 05/06/19 Asthma: No Cancer: No Cardiac Disorders: No COPD: No Diabetes: No HTN: No Seizures: No Thyroid Disease: No - Reproductive History (#): 2 Para: 1 Therapeutic (s) & number: No Spontaneous : 1 - Immunization History Immunization Up to Date: Yes - Psycho Social/Smoking Cessation Hx Smoking History: Never smoked Have you smoked in the past 12 months: No Hx Alcohol Use: No Drug/Substance Use Hx: No Substance Use Type: Marijuana Hx Substance Use Treatment: No Review of Systems - Review of Systems Constitutional: No: Chills, Diaphoresis, Fever HEENTM: No: Recent change in vision, Double Vision, Tinnitus, Hearing Loss, Difficulty Swallowing Respiratory: Yes: Shortness of Breath. No: Cough, Orthopnea Cardiac (ROS): Yes: Lightheadedness. No: Chest Pain, Edema, Irregular Heart Rate, Palpitations, Syncope, Chest Tightness ABD/GI: No: Constipated, Diarrhea, Nausea, Vomiting : No: Burning, Dysuria, Discharge, Frequency, Flank Pain Musculoskeletal: No: Back Pain, Muscle Pain Neurological: No: Headache, Numbness, Tingling, Weakness *Physical Exam - Physical Exam Comments: 05/06/19 09:40 Gen: well-developed, well-nourished, mild distress Neuro: AAOX4, CN II-XII intact, FTN intact, EOMI, PERRLA, 5/5 strength, SILT HEENT: atraumatic, normocephalic, dry mucous membranes Neck: trachea midline, supple CV: tachycardic, regular rhythm, no murmurs, rubs, or gallops Pulm: CTA b/l, no wheezing Abd: soft, non-distended, ttp in suprapubic region : active slow bleeding, apparent fetus outside of vagina with cord connecting within MSK: full ROM, intact pulses Extr: no edema, no deformities Skin: warm, dry ED Treatment Course - LABORATORY CBC & Chemistry Diagram: 05/06/19 08:30 05/06/19 08:30 Medical Decision Making - Medical Decision Making 05/06/19 08:30 Patient with active miscarriage. - CBC, CMP - coags - T+S - will speak with Dr. Villareal, likely give Pitocin - TVUS - ctm 05/06/19 08:52 Hgb 11.7. 05/06/19 09:[address] Pabon, recommends pitocin, methergine, TVUS, follow up outpatient. 05/06/19 09:38 Patient reassessed and informed of plan, agrees. Complains of some dizziness, has dry mucous membranes. Will give 1L LR bolus. 05/06/19 10:24 Fundal message with gentle withdrawal on cord, detachment of fetus with some cord and placenta still within vagina. Will continue to monitor, plan for TVUS. 05/06/19 15:05 TVUS with blood clots vs retained products of conception. Spoke with Dr. Pabon, recommends two days of methergine TID, three days of doxycycline, see in outpatient clinic in the next three days. 05/06/19 16:53 Follow up TVUS shows no Doppler flow, more likely retained clots than POC but cannot rule out. Dc with close outpatient follow-up. Discharge - Discharge Information Problems reviewed: Yes Clinical Impression/Diagnosis: - Additional Discharge Information Prescriptions: Doxycycline Hyclate 200 mg PO ONCE #[address] Jacksonergonovine Maleate [Methergine] 0.2 mg PO TID #9 tablet - Follow up/Referral Referrals: Kateryna Rosario MD [Primary Care Provider] - La Nena Pabon MD [Staff Physician] - - Patient Discharge Instructions Patient Printed Discharge Instructions: DI for Miscarriage Additional Instructions: You were seen with a miscarriage. Your bleeding stopped after receiving medication. Your ultrasound showed that you may have some retained products of conception. Please take methergine three times a day for the next three days. Please take doxycycline once a day for the next 3 days. Follow up with your primary care doctor within 1 week. Follow up with your OBGYN tomorrow. Return to the ED if you develop worsening symptoms. - Post Discharge Activity
--- NOTE | 2019-05-06 08:32 | PDOC ---
Attending Attestation - Resident Resident Name: PalomaresWong - ED Attending Attestation I have performed the following: I have examined & evaluated the patient, The case was reviewed & discussed with the resident, I agree w/resident's findings & plan, Exceptions are as noted - HPI HPI: 05/06/19 08:34 Ms. Matthews is a 33yF 13 weeks and 3 days who presents to the ER via private vehicle with a spontaneous ab in progress P apparently was seen by Dr. Villareal and had a known IUFD Approximately 2 hours prior to arrival, pt noted intense cramping she then noted severe vaginal bleeding and that she passed one of the fetus No fevers or chills - Physicial Exam PE: 05/06/19 08:37 GENERAL: The patient is in no acute distress, appears to be in pain. ENT: Moist mucous membranes. NECK: Normal range of motion, supple LUNGS: Breath sounds equal, clear to auscultation bilaterally. No wheezes, and no crackles. HEART:Regular rate and rhythm, normal S1 and S2 without murmur, rub or gallop. ABDOMEN: Soft, lower abdominal tenderness to palpation PELVIC: (+) fetus outside of the body, (+) vaginal bleeding EXTREMITIES: Normal range of motion, no edema. NEUROLOGICAL: Cranial nerves II through XII grossly intact. Normal speech. No focal neurological deficits. SKIN: Warm, Dry, normal turgor, no rashes or lesions noted. - Critical Care Time Total Critical Care Time: 120 Critical Care Statement: The care of this patient involved high complexity decision making to prevent further life threatening deterioration of the patient 's condition and/or to evaluate & treat vital organ system(s) failure or risk of failure. - Medical Decision Making 05/06/19 08:39 34 yo F presenting with a complaint of vaginal bleeding Ongoing spontaneous ab call placed to dr Villareal awaiting response 05/06/19 08:56 Dr. Pabon is admissions evaluator 2nd call placed to practice She is in the OR right now Will order pitocin now 05/06/19 08:57 Laboratory Tests 05/06/19 08:30 WBC 10.3 H Hgb 11.7 Hct 34.3 D Plt Count 273 05/06/19 08:57 Tylenol ordered for pain If needed, will give Morphine 05/06/19 09:[address] Pabon Plan is to give Pitocin and Methergen Do TVUS and plan to discharge with client evaluator follow up... 05/06/19 10:13 Pitocin drip pending Awaiting complete delivery of fetus and remaining intrauterine products 05/06/19 10:14 Laboratory Tests 05/06/19 08:30 BUN 6.7 L Creatinine 0.6 05/06/19 10:59 fetus delivered Pitocin hanging Pending US 05/06/19 15:03 Ultrasound: No intrauterine gestational sac seen Significantly distended endometrium and endocervical canal with markedly heterogeneous echogenic material which could represent blood clots or retained products of conception. 05/06/19 15:[address] Pabon Ultrasound reviewed with her She recommends discharged home with Methergine 0.2 mg TID Follow up in their office Pt is awaiting the results of her follow up US Pt signed out to Dr Edwards pending this U/S read Patient asked to monitor herself for heavy vaginal bleeding if she notes that she is saturating 2 pads per hour for 2 hours, patient has to return to the emergency department immediately for reassessment. Also if she is lightheaded, dizzy she must return to the ER immediately. Patient told she must follow-up with ONCOLOGY PHYSICIAN I discussed the physical exam findings, ancillary test results and final diagnoses with the patient. I answered all of the patient's questions. The patient was satisfied with the care received and felt comfortable with the discharge plan and treatment plan. The patient will call their primary care physician within 24 hours to arrange follow-up and will return to the Emergency Department with any new, persistant or worsening symptoms. The patient understands that we could not exclude the possibility of an ectopic based on her emergency department workup. She understands that it is extremely important that she sees her physician within 24-48 hours for a repeat visit, including repeat blood work. 05/07/19 07:45
[2019-05-06 08:34] VITALS: TEMP 97.8
[2019-05-06] MEDS ORDERED: ACETAMINOPHEN 1000 MG/100 ML VIAL (NON FORMULARY) IVPB ONE (08:41)
[2019-05-06 08:44] LABS: BASO % 0.6 % (0-2.0); EOS % 2.7 % (0-4.5); HEMATOCRIT 34.3 % (32.4-45.2); HEMOGLOBIN 11.7 GM/dL (10.7-15.3); MCH 28.5 pg (25.7-33.7); MCHC 34.2 g/dl (32.0-36.0); MEAN CELL VOLUME 83.4 fl (80-96); MEAN PLT VOLUME 9.1 fl (7.5-11.1); MONO % 6.9 % (3.8-10.2); NEUT % 64.8 % (42.8-82.8); PLATELET COUNT 273 K/MM3 (134-434); RBC 4.12 M/mm3 (3.60-5.2); RDW 13.6 % (11.6-15.6); WHITE BLOOD COUNT 10.3 K/mm3 (4.0-10.0)
[2019-05-06] MEDS ORDERED: ACETAMINOPHEN INJECTION 100 ML IVPB ONE (08:50)
[2019-05-06] MEDS ORDERED: morphine CARPU-JECT 4 MG/1 ML DISP.SYRIN IVPUSH ONE ×3 (08:51→14:23)
[2019-05-06] MEDS ORDERED: OXYTOCIN 20 UNITS in 0.9% NS 1000 ML INFUS.BAG IV ONE ×3 (08:56→09:17)
[2019-05-06] MEDS ORDERED: METHYLERGONOVINE MALEATE 0.2 MG TABLET (FP) PO ONE (09:01)
[2019-05-06] MEDS ORDERED: morphine SULFATE 4 MG/ML VIAL ONE (09:06)
[2019-05-06 09:09] LABS: INR 0.98 (0.83-1.09); PROTHROMBIN TIME (PATIENT) 11.6 SEC (9.7-13.0)
[2019-05-06] MEDS ORDERED: OXYTOCIN 20 UNITS in 0.9% NS 20 UNIT/1,000 ML INFUS.BAG IV ONE (09:28)
[2019-05-06] MEDS ORDERED: LACTATED RINGERS SOLUTION 1,000 ML/1,000 ML INFUS.BAG IV STA (09:35)
[2019-05-06 10:08] LABS: BILIRUBIN,TOTAL 0.2 mg/dL (0.2-1); BLOOD UREA NITROGEN 6.7 mg/dL (7-18); CALCIUM 9.2 mg/dL (8.5-10.1); CREATININE 0.6 mg/dL (0.55-1.3); POTASSIUM 3.9 mmol/L (3.5-5.1); TOT PROT 7.1 g/dl (6.4-8.2)
[2019-05-06] MEDS ORDERED: MORPHINE SULFATE 2 MG/ML VIAL ONE ×2 (11:07→14:27)
[2019-05-06] MEDS ORDERED: ONDANSETRON 4 MG/2 ML VIAL IVPUSH ONE (13:41)
[2019-05-06] MEDS ORDERED: ONDANSETRON 4 MG/2 ML VIAL ONE (13:45)
[2019-05-06] MEDS ORDERED: SODIUM CHLORIDE 0.9% 500 ML INFUS.BAG IV ONE (13:49)
[2019-05-06 13:51] VITALS: BP 127/73; PULSE 93
[2019-05-06] MEDS ORDERED: DOXYCYCLINE INJECTION 100 MG in DEXTROSE 5%-WATER - 100 ML IVPB ONE (16:45)
[2019-05-06] MEDS ORDERED: DOXYCYCLINE MONOHYDRATE 25 MG/5 ML SUSPENSION PO ONE (16:46)
[2019-05-06] MEDS ORDERED: DOXYCYCLINE HYCLATE 100 MG CAPSULE PO ONE (17:09)
--- NOTE | 2019-05-10 09:14 | PATH ---
Surgical Pathology Report Patient Name: JOSELIN YI [facility]. Rec. #: [id number] /Age/Gender: 1985 (Age: 34) / F Account: [id number] Location: EMERGENCY ROOM Taken: 05/06/2019 Received: 05/06/2019 Reported: 05/10/2019 Physicians: Ester Mcmullen M.D. Specimen(s) Received PRODUCTS OF CONCEPTION Clinical History , 13 weeks miscarriage Final Diagnosis TISSUE/PRODUCTS OF CONCEPTION, DELIVERY: 34 G, IMMATURE FETUS. Electronically Signed Marian Balderrama M.D. Gross Description Received fresh, labeled with the patient's name and indicated on the requisition to be tissue/products of conception, is a 34 g intact fetus measuring 8.3 cm from crown to rump and 10.9 cm from crown to heel. There is a 6 cm in length x 0.4 cm in diameter portion of umbilical cord attached at the umbilicus. The eyelids are fused shut. The upper and lower extremities appear normal and well-proportioned without any defects. Each hand and foot displays 5 digits. The lumbosacral spine is intact. The skin is mildly macerated. The external genitalia appears to be that of a male. No sections are submitted, gross only. 05/07/2019 [facility]05/07/2019
== END 2019-05-06 17:31 | disposition home or self-care (01) ==
LOC: JER 08:23
PROC: 3E033GC Introduction of Other Therapeutic Substance into Peripheral Vein, Percutaneous Approach (ICD-10-PCS; principal; 2019-05-06)
PROC: 3E033NZ Introduction of Analgesics, Hypnotics, Sedatives into Peripheral Vein, Percutaneous Approach (ICD-10-PCS; 2019-05-06)
PROC: 3E033NZ Introduction of Analgesics, Hypnotics, Sedatives into Peripheral Vein, Percutaneous Approach (ICD-10-PCS; 2019-05-06)
PROC: 3E033NZ Introduction of Analgesics, Hypnotics, Sedatives into Peripheral Vein, Percutaneous Approach (ICD-10-PCS; 2019-05-06)
PROC: 3E033NZ Introduction of Analgesics, Hypnotics, Sedatives into Peripheral Vein, Percutaneous Approach (ICD-10-PCS; 2019-05-06)
PROC: 3E033GC Introduction of Other Therapeutic Substance into Peripheral Vein, Percutaneous Approach (ICD-10-PCS; 2019-05-06)
DX: O26.891 Other specified pregnancy related conditions, first trimester (principal); O03.9 Complete or unspecified spontaneous abortion without complication; Z3A.13 13 weeks gestation of pregnancy
CPT/HCPCS: 36415; 76817-TC; 80053; 85025; 85610; 85730; 86850; 86900; 86901; 88305-TC; 99284-25; J0131

== ENCOUNTER → 2019-05-13 | Day surgery (SDC) | payer OTHER ==
[2019-05-12 18:17] VITALS: BMI 29.2
[~2019-05-13] MED LIST: ACETAMINOPHEN 325 MG TABLET (FP) PO PRN; DEXAMETHASONE SOD PHOSPHATE 4 MG/1 ML VIAL ONE; IBUPROFEN 400 MG TABLET (FP) PO PRN; KETOROLAC TROMETHAMINE 30 MG/1 ML VIAL ONE; LACTATED RINGERS SOLUTION 1,000 ML IV SCH; MIDAZOLAM HCL 2 MG/2 ML SINGLE DOSE VIAL ONE; ONDANSETRON 4 MG/2 ML VIAL IVPUSH PRN; PROPOFOL 20 ML ONE; oxyCODONE HCL 5 MG TABLET PO PRN
--- NOTE | 2019-05-13 11:26 | HP ---
History & Physical Update - History History: No Change - Physical Physical: No Change - Assessment Assessment: No Change - Plan Plan: No Change (No change in HP)
--- NOTE | 2019-05-13 11:28 | OP ---
Operative Note - Note: Operative Date: 05/13/19 Pre-Operative Diagnosis: Missed Operation: Suction DC Post-Operative Diagnosis: Same as Pre-op Anesthesia: General Operative Report Dictated: Yes
--- NOTE | 2019-05-13 13:04 | OP ---
DATE OF OPERATION: 05/13/2019 PREOPERATIVE DIAGNOSIS: Incomplete . OPERATION: Suction dilatation and curettage. POSTOPERATIVE DIAGNOSIS: Incomplete . SURGEON: La Nena Pabon MD ANESTHESIA: General. PROCEDURE: Patient was taken to the operating room, placed in dorsal lithotomy position, prepped and draped in usual sterile fashion. Timeout was performed in accordance with hospital regulation. Speculum was placed in the vagina. Anterior lip of the cervix grasped with a single-tooth tenaculum. Cervix was then dilated to accommodate the suction D&C. Suction D&C was then performed, and specimen was sent to pathology. Estimated blood loss 30 mL. Patient tolerated the procedure well. All instruments were removed, and the patient was taken to recovery in stable condition. LA NENA PABON M.D. KATIANA/[id number]
[2019-05-13 13:08] VITALS: TEMP 98.2
[2019-05-13 13:40] VITALS: BP 124/77; PULSE 69
--- NOTE | 2019-05-17 18:09 | PATH ---
Surgical Pathology Report Patient Name: JOSELIN YI [facility]. Rec. #: [id number] /Age/Gender: 1985 (Age: 34) / F Account: [id number] Location: [facility] SURGICAL Taken: 05/13/2019 Received: 05/13/2019 Reported: 05/17/2019 Physicians: La Nena Pabon M.D. Specimen(s) Received PRODUCTS OF CONCEPTION Clinical History Missed Final Diagnosis PRODUCTS OF CONCEPTION, SUCTION DILATION AND CURETTAGE: IMMATURE CHORIONIC VILLI WITH DEGENERATIVE CHANGES AND DECIDUA CONSISTENT WITH PRODUCTS OF CONCEPTION. Electronically Signed Marian Balderrama M.D. Gross Description Received in formalin labeled "products of conception," is a 7.3 x 5.0 x 0.7 cm aggregate of polanco-brown soft tissue fragments. No definitive villous tissue or somatic tissue is identified. Assembler Insulator sections are submitted in 3 cassettes. /05/14/2019 saudi05/14/2019
== END | disposition home or self-care (01) ==
LOC: JOR 09:25 → JASU-SURG 09:25
PROVIDERS: ATTEND Obstetrics & Gynecology
PROC: 10D17ZZ Extraction of Products of Conception, Retained, Via Natural or Artificial Opening (ICD-10-PCS; principal; 2019-05-13 11:30)
DX: O03.4 Incomplete spontaneous abortion without complication (principal)
CPT/HCPCS: 84703; 86850; 86900; 86901; 88305-TC; 94760